=== PATIENT | male | born 1980 | race Caucasian/White ===

== ENCOUNTER → 2024-03-22 | Emergency (ER) | payer MEDICAID ==
[~2024-03-22] VITALS: Ht 175.3 cm; Wt 72.7 kg
[2024-03-22 09:42] VITALS: BP 115/73; PULSE 55; RESP 18; TEMP 96.9; O2SAT 99
== END | disposition still patient (30) ==
LOC: EMS 09:03
DX: R22.31 Localized swelling, mass and lump, right upper limb (principal); Z53.21 Procedure and treatment not carried out due to patient leaving prior to being seen by health care provider